=== PATIENT | female | born 1970 | race Caucasian/White ===

== ENCOUNTER 2018-09-08 09:10 | Day surgery (SDC) | payer BC, OTHER ==
[~2018-09-08 09:10] MED LIST: Buffered Lidocaine 0.9% SYRIN* 5 ML/SYR SYRINGE INTRADERM ONE; Famotidine IV* 10 MG/ML 2 ML (20 mg) IV ONE
[2018-09-08] MEDS ORDERED: Famotidine IV* 10 MG/ML 2 ML (20 mg) ONE (09:41)
[2018-09-08] MEDS ORDERED: ceFAZolin 2 GM PREMIX in ORs 2 GM/50 ML BAG IVPB ONE (09:41)
[2018-09-08] MEDS ORDERED: ceFAZolin 1 GM in Dextrose (*) 1 GM/50 ML BAG IVPB ONE (11:46)
[2018-09-08] MEDS ORDERED: Midazolam* 1 MG/ML 5 ML VIAL (5 MG) ONE (11:50)
[2018-09-08] MEDS ORDERED: fentaNYL* 50 MCG/ML 2 ML VIAL (100 MCG VIAL) ONE ×3 (11:50→15:32)
[2018-09-08] MEDS ORDERED: Acetaminophen TAB* 325 MG PO PRN (13:30)
[2018-09-08] MEDS ORDERED: DiMENhydriNATE IV* 50 MG/ML VIAL IV PUSH PRN (13:30)
[2018-09-08] MEDS ORDERED: Naloxone* 0.4 MG/ML 1 ML VIAL IV PRN (13:30)
[2018-09-08] MEDS ORDERED: Lidocaine 2% PF * 5 ML VIAL ONE (14:56)
[2018-09-08] MEDS ORDERED: DiMENhydriNATE IV* 50 MG/ML VIAL ONE (14:56)
[2018-09-08] MEDS ORDERED: Ondansetron INJ* 2 MG/ML VIAL ONE (14:56)
[2018-09-08] MEDS ORDERED: Dexamethasone IV* 4 MG/ML 1 ML (4 MG) ONE (14:56)
[2018-09-08] MEDS ORDERED: Propofol* 10 MG/ML 20 ML BTL ONE ×2 (14:56→15:34)
[2018-09-08] MEDS ORDERED: Bupivacaine 0.25% SDV PF* 10 ML VIAL INJ ONE ×2 (15:06→16:01)
[2018-09-08] MEDS ORDERED: HYDROmorphone INJ1* 1 MG/ML SYRINGE ONE (16:36)
[2018-09-08] MEDS: HYDROmorphone INJ1* 1 MG/ML SYRINGE IV PRN ×3 (16:38→16:59)
[2018-09-08] MEDS ORDERED: traMADol TAB* 50 MG ONE (16:45)
[2018-09-08 17:19] VITALS: BP 150/86
--- NOTE | 2018-09-09 13:54 | OP ---
DATE OF OPERATION: 09/08/18 - [facility] DATE OF : 72 SURGEON: Andrew Aguilar MD LABORATORY IMMUNOLOGIST: KAIDEN Matias. An membership assistant was needed for the entirety of the procedure to aid in positioning of the arm and retraction. ANESTHESIOLOGIST: Dr. Bocanegra. ANESTHESIA: General. PRE-OP DIAGNOSES: 1. Right thumb carpometacarpal degenerative joint disease. 2. Attenuation and insufficiency of the right thumb MCP joint volar plate allowing for significant MCP joint hyperextension of about 60 degrees. POST-OP DIAGNOSES: 1. Right thumb carpometacarpal degenerative joint disease. 2. Attenuation and insufficiency of the right thumb MCP joint volar plate allowing for significant MCP joint hyperextension of about 60 degrees. OPERATIVE PROCEDURE: 1. Right thumb carpometacarpal arthroplasty with trapeziectomy. 2. Distally based split flexor carpi radialis tendon transfer for thumb suspension and tendon interposition. 3. Right thumb MCP joint volar capsulodesis with volar plate advancement. INDICATIONS: Ary has had severe disabling pain. We have talked about risks and benefits. She had wanted to proceed with surgery. Additionally, I told her that with the CMC arthroplasty, I needed to tighten up the MCP joint to give her maximal strength in the thumb. She understood this and wanted to proceed with surgery. ESTIMATED BLOOD LOSS: 2 mL. COMPLICATIONS: None. FINDINGS: See above and below. DESCRIPTION OF PROCEDURE: Ary was seen in the preoperative holding area. The correct site, side, and procedure were identified. We came back to the operating room where the arm was prepped and draped in usual fashion. A time- out was performed. The arm was exsanguinated with the Esmarch and the tourniquet was inflated to 250 mmHg. I made a longitudinal incision over the dorsal radial aspect of the thumb base. Dissection was carried down longitudinally to preserve the traversing sensory nerves. The radial artery was identified and mobilized out of the way and retracted with a Ragnell retractor. I then made a longitudinal capsulotomy and raised a periosteal and capsular flaps off of the trapezium to expose the entirety of the trapezium dorsally and I then removed the trapezium in piecemeal fashion with a rongeur taking great care to preserve the distal pole of the scaphoid and cartilage and the trapezoid and what was left on the metacarpal base. There was a quite bit of full thickness cartilage loss on the metacarpal base and distal aspect of the trapezium. Once I had removed the entirety of the trapezium, I went ahead and examined the scaphoid trapezoid joint by placing a [place] elevator into the joint and plane longitudinal retraction on the second ray. The cartilage there was very nice and so no further treatment was needed there. I then created a bone tunnel from the dorsal radial metacarpal and proximal metacarpal of the volar ulnar aspect of the metacarpal base articular surface. This was drilled up to a 3.2 mm drill hole using sequentially larger drill bits. The wound was then irrigated out. We turned our attention to the tendon transfer. I made a 1 cm transverse incision over the distal FCR tendon just proximal to the wrist flexion crease, the sheath was opened. The tendon was brought up out of the wound and split longitudinally with a #15 blade. A 26 gauge wire was placed into the split. I then made 2 more 1 cm transverse incisions, each about 5 to 8 cm proximal to the left. The entirety of the sheath was released along the course of the tendon under the skin. A Brandy clamp was then placed under the skin and the wire was then pulled in the 2 most proximal sequentially into the more proximal wounds, releasing the half of the tendon proximally at the musculotendinous junction. I then secured the end of the tendon tail with a 3-0 Ethibond suture to prevent tendon frame. The split into the tendon was then shuttled down into base of thumb wound using 226 gauge wires. The tendon split was then completed all the way to the base of the second metacarpal. The free end of the tendon was passed through bone tunnel and then back around the intact limb and then appropriate tension was set while 3-0 Ethibond figure-of- eight sutures were used to secure all 3 limbs of the tendon transfer and then the last 2 sutures were used to sew intact limb to intact limb. Once the tendon transverse was completed, the thumb was in very nice position. The remainder of the tendon tail was rolled up into a bone, secured with 3-0 Ethibond suture and placed with interposition at the site of the trapeziectomy. The capsule was then closed with 3-0 Ethibond suture. All the wounds were then closed with 4-0 nylon suture. We then turned our attention to the volar MCP joint capsulodesis. I made a V- shaped incision and raised a radially based flap and ulnarly based flap off the anterior MCP joint, taking care to preserve both digital nerves. I then incised the A1 jamar along its entire length and then I retracted the flexor tendon radially. This provided me an excellent view of the volar plate, which I raised as a distally based U-flap, using a [place] blade. Once the flap was fully mobilized, I could pull on the flap of the volar plate and flex the MCP joint. I then placed 2 mini Mitek suture anchors in the distal aspect of the metacarpal just proximal to the metacarpal head. I then sewed up into the volar plate with both of the Ethibond sutures, coming up to mini Mitek sutures. This was done in a whipstitch type fashion and then I pulled the tissue down the bone and tied it off in standard fashion, tying up first the radial stitch and then the ulnar stitch. This put my MCP joint in about 20 degrees of flexion and I could passively take it out to about 10 degrees of flexion. I was very pleased with this. I therefore let the tendon back into place, irrigated out the wound. The skin was closed with 4-0 nylon suture. All the operative areas were infiltrated with 0.25% plain Marcaine. A well padded thumb spica splint was applied out to the tip of the thumb, holding the MCP joint in gentle flexion. Tourniquet was deflated and she was taken to the recovery room in stable condition. [id number]/[facility] #: [id number] TOBIAS
== END 2018-09-08 17:43 | disposition home or self-care (01) ==
LOC: OR 09:10
PROVIDERS: ATTEND Orthopaedic Surgery Hand Surgery
DX: M18.11 Unilateral primary osteoarthritis of first carpometacarpal joint, right hand (principal); M25.341 Other instability, right hand; Z87.891 Personal history of nicotine dependence; I10 Essential (primary) hypertension; J45.990 Exercise induced bronchospasm
CPT/HCPCS: 81025; 88304; 88311; A9270-GY; C1713; J0690; J1100; J1170; J1240; J2250; J2405; J2704; J3010; J3490

== ENCOUNTER 2018-10-29 13:49 | Emergency (ER) | payer OTHER ==
--- OUTSIDE RECORDS SUMMARY | 2018-10-29 14:12 | XMS REPORT | Continuity of Care Document ---
:1970 External Reference #:[id number] Author Name Rian Eduardo MD Address [address] [place] [address] Care Team Providers Name Role Phone Andrew Aguilar MD Care Team Information [employer] Unavailable Pedro Izaguirre NP Primary Care Physician Unavailable Payers Type Date Identification Numbers Payment Provider Subscriber Policy Number: [id number] [facility] Ary Miramontes PayID: [id number] [address] [address] [place] [address] Onset: 2018 Policy Number: [id number] [employer] Name: Ext [id number] [address] [address] PayID: [id number] [place] [address] Advance Directives Description No Information Available Problems Date Description Provider Status Onset: 03/22/2016 Benign essential hypertension Ravindra Larsen MD Active Onset: 03/22/2016 Irritable bowel syndrome Ravindra Larsen MD Active Note: colo to TI, suboptimal prep (but had only 1/2 day of liquid diet), Bx 2015 Onset: 03/22/2016 Asthma Ravindra Larsen MD Active Onset: 03/22/2016 Thin basement membrane disease Ravindra Larsen MD Active Onset: 03/22/2016 Obesity Ravindra Larsen MD Active Onset: 03/22/2016 Gastroesophageal reflux disease Ravindra Larsen MD Active Note: upper push-enteroscopy 20 cm beyond Treitz Bx 2015 Onset: 05/26/2018 Skin sensation disturbance January Mandujano MD Active Onset: 05/26/2018 Pain in limb January Mandujano MD Active Family History Date Family Member(s) Problem(s) Comments Father Diabetes Father IBS Father Gastritis Mother Diabetes Mother Rheumatoid Arthritis Mother Hypertension Social History Type Date Description Comments Sex Unknown Marital Status Home Environment 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 Tobacco Use Start: Unknown Never Smoked Cigarettes Smokeless Tobacco Never Used Smokeless Tobacco ETOH Use Occasionally consumes alcohol Recreational Drug Use Denies Drug Use Tobacco Use Start: Unknown End: Patient is a former smoker Allergies, Adverse Reactions, Alerts Date Description Reaction Status Severity Comments 07/13/2013 Ibuprofen Active 07/13/2013 Hydrocodone Active 03/22/2016 Oxycodone Active 03/22/2016 Pseudoephedrine Active 03/22/2016 Cefprozil Active 03/22/2016 Trazodone Active 03/22/2016 Oxymetazoline Active 12/26/2017 Ketorolac Tromethamine Active Pt states cuts off airway Medications Medication Date Status Form Strength Qnty SIG Indications Ordering Provider Lactose Fast Acting 03/19 Active Chewtabs 9000Unit 90uni 1 tablet K58.0 Jayce ts with each , suri Modi MD 10/04 Active Tablets 100mg 60tab Take One K58.0 Jayce s Tablet By Rian Mouth MD Twice A Day Max/Day=2 Hydrochlorothiazide Active Capsules 12.5mg 1 po daily Unknown Dicyclomine HCL Active Tablets 20mg 360ta take one Vatra, bs tablet by sandra Waite MD every 6 hours as needed for abdominal pain Excedrin Migraine Active Tablets 250-250-6 2 tab by Unknown 5mg mouth every day as needed max 2 tabs/24hrs prn Levocetirizine Active Tablets 5mg 1 by mouth Unknown Dihydrochloride every day Proair HFA Active Aerosol 108(90Bas Fensterma e) [place] diaza mcg/Act n S, RPA-Ileana Pulmicort Flexhaler Active Aerosol 180mcg/Ac 2 p daily Fensterma t joe,Suza n S, RPA-C Pazeo Eye Drops Active Solution 0.7% A/D as Fensterma needed for joe,[place] allergies n S, RPA-C Tramadol HCL Active Tablets 50mg 1 po q 4-6 Unknown /0000 h prn Peg-3350/Electrolyt 03/19 Hx Solution 236gm 4000m drink half K58.0 Jayce Rec l bottle 4pm , Rian, half MD bottle 4am Citrate Of Magnesia 03/19 Hx Solution 1.745GM/3 296ml 1 bottle K58.0 0ML at 1pm Rian martínez, before MD procedure Dulcolax 03/19 Hx Tablets 5mg 4tabs 4 tablets K58.0 Rian Hyatt, 8pm the MD day before the procedure Viberzi 08/21 Hx Tablets 100mg 30tab 1 tab by s mouth , Rian, twice a MD day Suprep Bowel Prep 03/22 Hx Solution 354ml drink 16 Vat oz x1 Ravindra, - dose, then MD 04/30 drink oz water over 1h evening before procedure; repeat regimen at least 1h before procedure Dicyclomine HCL Hx Capsules 10mg as prn Unknown - 03/22 Cipro Hx Tablets 500mg 1 by mouth Unknown twice a day, ending 05/10/16 Azithromycin Hx Tablets 250mg Robledo, Dorina, - FUEL MANAGER 10/02 Immunizations Description No Information Available Vital Signs Date Vital Result Comment 10/02/2018 10:52am BP Systolic Sitting Left Arm 130 mmHg BP Diastolic Sitting Left Arm 90 mmHg Heart Rate 88 /min Respiratory Rate 16 /min Height 66 inches 5'6" Weight 266.00 lb BMI (Body Mass Index) 42.9 kg/m2 BSA (Body Surface Area) 2.26 m2 Carroll body weight in kilograms 59 kg O2 % BldC Oximetry 97 % 12/26/2017 2:30pm BP Systolic Sitting Right Arm 134 mmHg BP Diastolic Sitting Right Arm 82 mmHg Heart Rate 98 /min Respiratory Rate 18 /min Height 66 inches 5'6" Weight 266.00 lb BMI (Body Mass Index) 42.9 kg/m2 BSA (Body Surface Area) 2.26 m2 Carroll body weight in kilograms 59 kg 09/12/2017 12:56pm BP Systolic Sitting Left Arm 148 mmHg BP Diastolic Sitting Left Arm 96 mmHg Heart Rate 90 /min Respiratory Rate 16 /min Height 66 inches 5'6" Weight 266.00 lb BMI (Body Mass Index) 42.9 kg/m2 BSA (Body Surface Area) 2.26 m2 Carroll body weight in kilograms 59 kg 03/19/2017 1:07pm BP Systolic Sitting Left Arm 130 mmHg BP Diastolic Sitting Left Arm 96 mmHg Heart Rate 84 /min Respiratory Rate 16 /min Height 66 inches 5'6" Weight 255.00 lb BMI (Body Mass Index) 41.2 kg/m2 BSA (Body Surface Area) 2.22 m2 Carroll body weight in kilograms 59 kg 10/04/2016 9:39am BP Systolic Sitting Left Arm 132 mmHg BP Diastolic Sitting Left Arm 82 mmHg Respiratory Rate 16 /min Height 66 inches 5'6" Weight 257.00 lb BMI (Body Mass Index) 41.5 kg/m2 BSA (Body Surface Area) 2.22 m2 08/21/2016 10:33am BP Systolic Sitting Left Arm 144 mmHg BP Diastolic Sitting Left Arm 88 mmHg Heart Rate 80 /min Respiratory Rate 16 /min Height 66 inches 5'6" Weight 259.00 lb BMI (Body Mass Index) 41.8 kg/m2 BSA (Body Surface Area) 2.23 m2 05/01/2016 2:42pm BP Systolic 122 mmHg BP Diastolic 74 mmHg Heart Rate 93 /min Respiratory Rate 18 /min Height 66 inches 5'6" Weight 255.00 lb BMI (Body Mass Index) 41.2 kg/m2 BSA (Body Surface Area) 2.22 m2 O2 % BldC Oximetry 97 % ra 03/22/2016 9:16am BP Systolic 119 mmHg BP Diastolic 88 mmHg Heart Rate 80 /min Height 66 inches 5'6" Weight 250.00 lb BMI (Body Mass Index) 40.3 kg/m2 BSA (Body Surface Area) 2.20 m2 [place] body weight in kilograms 59 kg Results Test Date Facility Test Result H/L Range Note Laboratory test 08/26/2017 [facility] Urine HCG NEGATIVE Negative 1, [address] (Qualitative) [place] [address] [phone] Laboratory test 04/18/2016 [facility] Esophageal See Note [address] Biopsy [place], [place] [id number] [phone] Laboratory test 04/18/2016 [facility] Urine HCG NEGATIVE Negative [address] (Qualitative) [place] [address] [phone] CBC 07/11/2013 [facility] White Blood 8.6 K/uL 3.1-10.[address] Count [place], [place] [id number] [phone] Red Blood Count 4.09 M/uL 3.90-5.40 Hemoglobin 12.6 gm/dL 11.6-15.8 Hematocrit 37.2 % 36.0-46.1 Mean Cell Volume 91.0 fl 80.9-99.0 Mean Corpuscular HGB 30.8 pg 25.9-32.7 Mean Corpuscular HGB Conc 33.9 g/dL 30.8-34.3 Platelet Count 258 K/uL 155-360 Red Cell Distri Width %CV 12.2 % 11.7-14.4 Mean Platelet Volume 10.3 fL 8.9-12.4 1 COLONSCOPY 2 FIRST MORNING SPECIMENS GENERALLY CONTAIN THE HIGHEST CONCENTRATION OF HCG AND ARE RECOMMENDED FOR EARLY DETECTION OF . Method: Quidel QuickVue One-Step Immunoassay 3 OPERATION/PROCEDURE Colonoscopy with polypectomy, upper push enteroscopy. DIAGNOSIS: PART 1: "COLON, RANDOM, BIOPSY": - BENIGN COLONIC MUCOSA WITH NO SIGNIFICANT PATHOLOGIC ABNORMALITIES. - NO EVIDENCE OF MICROSCOPIC COLITIS. PART 2: "JEJUNUM, RANDOM, BIOPSY": - BENIGN SMALL INTESTINAL MUCOSA WITH NO SIGNIFICANT PATHOLOGIC ABNORMALITIES. - NO EVIDENCE OF VILLOUS BLUNTING OR INCREASED INTRAEPITHELIAL LYMPHOCYTES. PART 3: "ESOPHAGUS, BIOPSY": - FRAGMENTS OF BENIGN COLONIC MUCOSA WITH NO SIGNIFICANT PATHOLOGIC ABNORMALITIES. - COLUMNAR-TYPE ESOPHAGEAL MUCOSA WITH MILD CHRONIC INFLAMMATION. - NEGATIVE FOR INTESTINAL METAPLASIA OR DYSPLASIA. EP/clf 1040 GROSS Received in formalin in three properly labeled container with the patient's name and accession number. Part one is designated, "RANDOM COLON BIOPSY". The specimen consists of multiple pieces of naidu, soft rubbery tissue measuring 0.4 x 0.4 x 0.2 cm. in aggregate. Submitted entirely in one cassette. Part two is designated, "RANDOM JEJUNAL BIOPSY". The specimen consists of multiple pieces of naidu, soft rubbery tissue measuring 0.7 x 0.4 x 0.3 cm. in aggregate. Submitted entirely, one cassette. Part three is designated, "ESOPHAGEAL BIOPSY". The specimen consists of multiple pieces of naidu, soft rubbery tissue measuring 0.5 x 0.3 x 0.2 cm. in aggregate. Submitted entirely, one cassette. PRE OPERATIVE DIAGNOSIS Abdominal pain. REVIEW CODE CODE: I Signed Electronically signed Dionne SALEH MD [id number] FIRST MORNING SPECIMENS GENERALLY CONTAIN THE HIGHEST CONCENTRATION OF HCG AND ARE RECOMMENDED FOR EARLY DETECTION OF . Procedures Date Code Description Status 05/26/2018 09323 Nerve Conduction, Sensory Completed 05/26/2018 79816 Nerve Conduction, Motor W/F-Wave Study Completed 05/26/2018 75132 Needle Electromyography Complete, Five Or More Muscles Completed Studied 08/26/2017 48110 Colonoscopy With Biopsy Completed 08/26/2017 [id number] Colonoscopy Completed 04/18/2016 64901 Colonoscopy Completed 04/18/2016 16919 Endoscopy Small Intestine W/Biopsy Completed 04/18/2016 [id number] Colonoscopy Completed 10/07/2009 [id number] Colonoscopy Completed 04/01/2002 [id number] Colonoscopy Completed Encounters Type Date Location Provider Dx Diagnosis Office Visit 10/02/2018 Rian Duncan MD K58.0 Irritable bowel 11:00a syndrome with diarrhea Office Visit 12/26/2017 Rian Duncan MD K58.0 Irritable bowel 2:30p syndrome with diarrhea Office Visit 09/12/2017 Rian Duncan MD K58.0 Irritable bowel 1:00p syndrome with diarrhea K52.831 Collagenous colitis Office Visit 03/19/2017 1:00p GI Rian Eduardo MD K58.0 Irritable bowel syndrome with diarrhea Office Visit 10/04/2016 9:30a GI Rian Eduardo MD K58.0 Irritable bowel syndrome with diarrhea Office Visit 08/21/2016 10:30a GI Rian Eduardo MD K58.0 Irritable bowel syndrome with diarrhea Office Visit 05/01/2016 3:00p GI Ravindra Larsen MD R11.0 Nausea K58.0 Irritable bowel syndrome with diarrhea K21.9 Gastro-esophageal reflux disease without esophagitis Office Visit 03/22/2016 9:15a Ravindra Abebe MD K58.9 Irritable bowel syndrome without diarrhea K21.9 Gastro-esophageal reflux disease without esophagitis Office Visit 03/16/2015 2:51p James Gómez, 789.00 Pain Abdominal Regional M.D. [facility] 787.03 Vomiting Alone 787.91 Diarrhea Office Visit 07/11/2013 11:17a Surgical Office [facility] 789.03 Pain Abdominal Christopher H., Right Lower M.D. [facility]rant Office Visit 07/10/2013 10:08a Harriet James Armando, 789.03 Pain Abdominal Regional M.D. [facility] Plan of Treatment Future Appointment(s):03/10/2019 8:30 am - Rian Eduardo MD at GI10/02/2018 - Rian Eduardo MDK58.0 Irritable bowel syndrome with diarrheaComments: symptoms well under control with viberzicontinue using lactase enzymeFollow up: 6 months
--- OUTSIDE RECORDS SUMMARY | 2018-10-29 14:12 | XMS REPORT | Continuity of Care Document ---
:1970 External Reference #:[id number] Author Name Deanne Aguilar Care Team Providers Name Role Phone Dorina Weber FNP Primary Care Physician Unavailable Payers Type Date Identification Numbers Payment Provider Subscriber Policy Number: [id number] [facility] Camilo Santoro PayID: [id number] [address] [address] [place] [address] Onset: 2018 Policy Number: [id number] [facility] Camilo Santoro Group Number: [id number] [address] [address] Group Name: [phone] [place] [address] PayID: [id number] Advance Directives Description No Information Available Problems Date Description Provider Status Onset: 2018 Finger joint unstable Andrew Aguilar MD Active Onset: 06/25/2018 Radial styloid tenosynovitis Andrew Aguilar MD Active Onset: 05/30/2018 Localized, primary osteoarthritis of the Andrew Aguilar MD Active hand Onset: 05/30/2018 Carpal tunnel syndrome of right wrist Andrew Aguilar MD Active Family History Date Family Member(s) Problem(s) Comments Father Seasonal Allergies Father Hypertension Father irritable bowel syndrome Father Diabetes Father Heart Disease Mother Rheumatoid Arthritis Mother Osteoarthritis Mother Hypertension Mother Diabetes Mother Seasonal Allergies Mother maternal grandmother-DM,HTN Siblings brother-HTN,Allergies Social History Type Date Description Comments Sex Unknown Marital Status Lives 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 ETOH Use Occasionally consumes alcohol Tobacco Use Start: Unknown Patient is a former End: Unknown smoker Recreational Drug Use Denies Drug Use Smoking Status Reviewed: 10/17/18 Patient is a former smoker Exercise Type/Frequency Exercises regularly walking twice daily Allergies, Adverse Reactions, Alerts Date Description Reaction Status Severity Comments 02/18/2018 Ketorolac Tromethamine Active Closes off airway 02/18/2018 Ibuprofen Active Bad rash 02/14/2018 Percocet Active 02/14/2018 Vicodin Active 02/14/2018 Endocet Active 02/14/2018 Cefdinir Active 02/14/2018 Altacaine Active 02/14/2018 Afrin Active Medications Medication Date Status Form Strength Qnty SIG Indications Ordering Provider Tramadol HCL 09/08 Active Tablets 50mg 30tab 1-2 s tablets Aguilar, by mouth MD every 6 hours as needed pain Voltaren 06/27 Active Gel 1% 500gm apply 2 grams to Aguilar, affected MD areas four times a day as needed Dicyclomine HCL Active Tablets 20mg take 1 Unknown /0000 tablet by mouth 2 to 4 times a day as needed Hydrochlorothiazid Active Capsules 12.5mg 1 by Unknown e /0000 mouth every day Ondansetron Active Tablets 4mg dissolve Unknown /0000 Dispers one tablet orally every 8 hours as needed for nausea. Rhinocort Allergy Active Suspension 32mcg/Act 2 sprays Unknown /0000 each nostril daily Viberzi Active Tablets 100mg 1 by Unknown /0000 mouth twice a day Acetaminophen Active Tablets 500mg 2 tabs by Unknown Extra Strength /0000 mouth every 8 hours as needed for pain or fever Medications Administered in Office Medication Date Status Form Strength Qnty SIG Indications Ordering Provider Celestone 3 mg Administered Injection Laureano M and 3mg 018 MD Mason Celestone 3 mg Administered Injection Laureano M and 3mg 018 MD Mason Immunizations Description No Information Available Vital Signs Date Vital Result Comment 10/17/2018 8:26am Height 66.50 inches 5'6.50" Weight 270.00 lb Heart Rate 88 /min BP Systolic Sitting 142 mmHg BP Diastolic Sitting 90 mmHg Pain Level 0 BMI (Body Mass Index) 42.9 kg/m2 09/19/2018 9:22am Height 66.50 inches 5'6.50" Weight 270.00 lb BP Systolic 130 mmHg BP Diastolic 88 mmHg Body Temperature 99.9 F BMI (Body Mass Index) 42.9 kg/m2 2018 8:48am Height 66.50 inches 5'6.50" Weight 270.00 lb BP Systolic Sitting 122 mmHg BP Diastolic Sitting 78 mmHg Respiratory Rate 16 /min Body Temperature 100.1 F Pain Level 9 BMI (Body Mass Index) 42.9 kg/m2 06/25/2018 10:39am Height 66.50 inches 5'6.50" Heart Rate 64 /min BP Systolic 136 mmHg BP Diastolic 90 mmHg Body Temperature 98.8 F Pain Level 7 05/30/2018 8:43am Height 66.50 inches 5'6.50" Weight 270.00 lb BP Systolic Sitting 124 mmHg BP Diastolic Sitting 66 mmHg Respiratory Rate 17 /min Pain Level 3 can spike up some days BMI (Body Mass Index) 42.9 kg/m2 02/24/2018 8:54am Height 66.50 inches 5'6.50" Weight 270.00 lb Heart Rate 80 /min BP Systolic 114 mmHg BP Diastolic 86 mmHg Respiratory Rate 16 /min Pain Level 2 BMI (Body Mass Index) 42.9 kg/m2 Results Test Date Facility Test Result H/L Range Note Laboratory test 09/08/2018 [facility] SEE RESULT [address] Pathology BELOW [place] [id number] [phone] 1 SEE RESULT BELOW Name: CAMILO SANTORO : [address]: Andrew Aguilar MD Acct: [id number] Unit: [id number] AGE: 48 Location: OR Re09/08/18 SEX: F Status: SUSSY ROSASC SPEC: [id number] MAR: 09/08/18- SUBM DR: Andrew Aguilar MD REQ: [id number] RECD: 09/08/18 STATUS: SOUT _ ORDERED: Decal, LEVEL 3 FINAL DIAGNOSIS Right thumb trapezium, excision: -- Benign bone and cartilage with degenerative change. PRE-OPERATIVE DIAGNOSIS Right thumb pain GROSS DESCRIPTION The specimen is received in formalin labeled, Right Thumb Trapezium Bone, and consists of a 3.5 x 3.0 by up to 1.1 cm aggregate of naidu-white irregular focally shaggy bone fragments. Travel Pt sections, one cassette following decalcification. Signed by and Reported on: Kassandra Piña MD 09/12/18 1528 END OF REPORT DEPARTMENT OF PATHOLOGY, [address] [place] [address] Margarito Friend M.D. Director [facility] # [id number] Procedures Date Code Description Status 09/19/2018 85580 Short Arm Splint Application Completed 09/08/2018 92265 Capsulodesis Metacarpophalangeal Joint, Single Digit Completed 09/08/2018 88247 Capsulodesis Metacarpophalangeal Joint, Single Digit Completed 09/08/2018 50823 Capsulodesis Metacarpophalangeal Joint, Single Digit Completed 09/08/2018 45107 Tendon Transfer CMC/Hand W/O Free Graft Completed 09/08/2018 62801 Tendon Transfer CMC/Hand W/O Free Graft Completed 09/08/2018 37464 Tendon Transfer CMC/Hand W/O Free Graft Completed 09/08/2018 97084 Arthroplasty Interposition Intercarpal Or Carpometacarpal Completed JTS 09/08/2018 43944 Arthroplasty Interposition Intercarpal Or Carpometacarpal Completed JTS 09/08/2018 70086 Arthroplasty Interposition Intercarpal Or Carpometacarpal Completed JTS 09/08/2018 32119 Capsulodesis Metacarpophalangeal Joint, Single Digit Completed 09/08/2018 14234 Tendon Transfer CMC/Hand W/O Free Graft Completed 09/08/2018 12707 Arthroplasty Interposition Intercarpal Or Carpometacarpal Completed JTS 02/24/2018 81530 Rad Exam; Hand Comp Completed 02/24/2018 61169 Inject Tendon Sheath Or Ligament Aponeurosis Eg Plantar Completed Fascia Encounters Type Date Location Provider Dx Diagnosis Office Visit 06/25/2018 Orthopedic Andrew Aguilar, M65.4 Radial styloid 9:45a [facility] tenosynovitis [de Quervain] G56.01 Carpal tunnel syndrome, right upper limb M18.11 Unil primary osteoarth of first carpometacarp joint, r hand Office Visit 05/30/2018 8:30a Orthopedic Andrew G56.01 Carpal tunnel [facility] Aguilar MD syndrome, right AT [place] upper limb M18.11 Unil primary osteoarth of first carpometacarp joint, r hand Plan of Treatment Future Appointment(s):11/14/2018 3:15 pm - Andrew Aguilar MD at [facility]
--- NOTE | 2018-10-29 16:04 | ED ---
Upper Extremity Pain - HPI Summary HPI Summary: 48-year-old female presents with right thumb injury today. States she fell on her outstretched hand. She just had tendon repair on her right thumb a month ago. She states she was just starting PT. She states she now has limited range of motion due to pain. She admits occasional tingling of the finger. 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 She is right-handed. She states the pain radiates up to her right wrist. She denies any elbow pain. No other injury. fall was a mechanical fall. - History of Current Complaint Chief Complaint: EDExtremityUpper Stated Complaint: FELL ON RIGHT HAND Time Seen by Provider: 10/29/18 15:29 Hx Last Menstrual Period: 02/06/16 - Allergies/Home Medications Allergies/Adverse Reactions: Allergies Allergy/AdvReac Type Severity Reaction Status Date / Time hydrocodone Allergy Severe Rash Verified 10/29/18 14:02 ketorolac Allergy Severe Difficulty Verified 10/29/18 14:02 Breathing oxycodone Allergy Severe Rash Verified 10/29/18 14:02 tetracaine [From Altacaine] Allergy Severe Airway Verified 10/29/18 14:02 Obstruction cefdinir Allergy Intermediate Difficulty Verified 10/29/18 14:02 Breathing ibuprofen Allergy Intermediate Difficulty Verified 10/29/18 14:02 Breathing oxymetazoline Allergy Intermediate Rash Verified 10/29/18 14:02 [From Afrin (oxymetazoline)] PMH/Surg Hx/FS Hx/Imm Hx Endocrine/Hematology History: Denies: Hx Diabetes, Hx Systemic Lupus Erythematosus, Hx Thyroid Disease Cardiovascular History: Reports: Hx Hypertension - HCTZ Denies: Hx Congestive Heart Failure, Other Cardiovascular Problems/Disorders Respiratory History: Reports: Hx Asthma - Rescue med Denies: Hx Sleep Apnea, Other Respiratory Problems/Disorders GI History: Reports: Hx Irritable Bowel - on medications Denies: Hx Gastroesophageal Reflux Disease, Other GI Disorders History: Reports: Hx Kidney Infection - history of, not recent, Hx Kidney Stones - history of, not recent-passed on own, Other Problems/Disorders - UTI approx 6 months ago Denies: Hx Dialysis, Hx Renal Disease Musculoskeletal History: Reports: Hx Arthritis - Right thumb, Hx Tendonitis - Radial styloid tenosynovitis (de Quervain) Denies: Hx Rheumatoid Arthritis, Other Musculoskeletal History Sensory History: Denies: Hx Contacts or Glasses, Hx Hearing Aid Opthamlomology History: Denies: Hx Contacts or Glasses Neurological History: Reports: Hx Headaches, Hx Migraine - Excedrine Migraine 1- 2 tabs Denies: Other Neuro Impairments/Disorders - Cancer History Hx Chemotherapy: No - Surgical History Surgery Procedure, Year, and Place: CHOLECYSTECTOMY 1990. C SECTION X1 1994. COLONOSCOPIES Hx Anesthesia Reactions: Yes - when had gallbladder had violent nausea and vomiting Infectious Disease History: No Infectious Disease History: Denies: Traveled Outside the [place] in Last 30 Days - Family History Known Family History: Positive: Hypertension - Social History Alcohol Use: Occasionally Substance Use Type: Reports: None Smoking Status (MU): Former Smoker Review of Systems Negative: Fever Negative: Chest Pain Negative: Shortness Of Breath Positive: Myalgia - right thumb pain All Other Systems Reviewed And Are Negative: Yes Physical Exam Triage Information Reviewed: Yes Vital Signs On Initial Exam: Initial Vitals Temp Pulse Resp BP Pulse Ox 98.7 F 94 19 161/108 96 10/29/18 13:59 10/29/18 13:59 10/29/18 13:59 10/29/18 13:59 10/29/18 13:59 Vital Signs Reviewed: Yes Appearance: Positive: Well-Appearing Skin: Positive: Warm, Dry Head/Face: Positive: Normal Head/Face Inspection Eyes: Positive: Normal, Conjunctiva Clear ENT: Positive: Pharynx normal Respiratory/Lung Sounds: Positive: Clear to Auscultation, Breath Sounds Present Cardiovascular: Positive: Normal, RRR Musculoskeletal: Positive: Limited @ - right thumb, Edema Right - thumb, Other - tenderness snuff box, surgical scars present, capillary refill<2 secs, sensation grossly intact. no deformity noted Neurological: Positive: Normal Psychiatric: Positive: Normal Procedures - Splinting right hand Location: right hand Hand-Made Type: orthoglass Splint: thumb spica Pre-Proc Neuro Vasc Exam: normal Post-Proc Neuro Vasc Exam: normal Diagnostics - Vital Signs Vital Signs Temp Pulse Resp BP Pulse Ox 10/29/18 13:59 98.7 F 94 19 161/108 96 - Laboratory Lab Statement: Any lab studies that have been ordered have been reviewed, and results considered in the medical decision making process. - Radiology wrist, hand Radiology Interpretation Completed By: Radiologist Summary of Radiographic Findings: IMPRESSION: #. Negative for fracture or dislocation at the RIGHT hand wrist. Course/Dx - Course Course Of Treatment: 48-year-old female presents with right thumb injury today. She fell on her outstretched hand. Has tenderness over right thumb and wrist. had tendon repair a month ago. Now has limited range of motion. On exam neurovascular intact. Tenderness over snuffbox. Edema noted to the right thumb. X-ray shows no fracture. With tenderness of snuffbox and recent surgery placed in a thumb spica splint and told to follow-up with orthopedic. Patient understands agrees with plan. - Diagnoses Differential Diagnosis/HQI/PQRI: Positive: Fracture (Closed), Strain, Sprain Provider Diagnoses: Injury of right hand Discharge - Sign-Out/Discharge Documenting (check all that apply): Patient Departure - Discharge Plan Condition: Good Disposition: HOME Patient Education Materials: R.I.C.E. Treatment (ED) Forms: *Work Release Referrals: Dionne Sanchez [Primary Care Provider] - Andrew Aguilar MD [Medical Doctor] - Additional Instructions: Keep splint on area and keep dry Call ortho office to follow up with Dr Aguilar Use tyenblol for pain every 6 hours Ice, elevate Return to ED if develop any new or worsening symptoms - Billing Disposition and Condition Condition: GOOD Disposition: Home
[2018-10-29 16:12] VITALS: BP 155/98
== END 2018-10-29 16:11 | disposition home or self-care (01) ==
LOC: ED 13:49
DX: S69.91XA Unspecified injury of right wrist, hand and finger(s), initial encounter (principal); Z87.891 Personal history of nicotine dependence; W19.XXXA Unspecified fall, initial encounter; Y92.9 Unspecified place or not applicable; I10 Essential (primary) hypertension; J45.909 Unspecified asthma, uncomplicated
CPT/HCPCS: 99282

== ENCOUNTER → 2019-07-13 08:58 | Day surgery (SDC) | payer BC, OTHER ==
[~2019-07-13 08:58] MED LIST changes: +Atracurium* 10 MG/ML 10 ML VIAL ONE; -Buffered Lidocaine 0.9% SYRIN* 5 ML/SYR SYRINGE INTRADERM ONE; +Buffered Lidocaine 1% SYRIN* 1 ML/SYRINGE INTRADERM ONE; +Bupivacaine 0.25% SDV PF* 10 ML VIAL INJ ONE; +Clindamycin 900 MG/D5W BAG(*) 900 MG/50 ML BAG IVPB ONE; +Dexamethasone IV* 4 MG/ML 1 ML (4 MG) IV SLOW PU ONE; +Dexamethasone IV* 4 MG/ML 1 ML (4 MG) ONE; +DiMENhydriNATE IV* 50 MG/ML VIAL IV PUSH PRN; +Famotidine IV* 10 MG/ML 2 ML (20 mg) ONE; +Lactated Ringers 1000 ML Bag* 1,000 ML IV SCH; +Levalbuterol 0.63MG/3ML NEB* UNIT OF USE INH ONE; +Lidocaine 2% PF * 5 ML VIAL ONE; +Midazolam* 1 MG/ML 5 ML VIAL (5 MG) ONE; +Naloxone* 0.4 MG/ML 1 ML VIAL IV PRN; +Ondansetron INJ* 2 MG/ML VIAL IV PRN; +Ondansetron INJ* 2 MG/ML VIAL ONE; +Propofol* 10 MG/ML 20 ML BTL ONE; +Rocuronium* 10 MG/ML VIAL ONE; +Sugammadex * 200 MG/2 ML VIAL IV PUSH ONE; +fentaNYL* 50 MCG/ML 2 ML VIAL (100 MCG VIAL) ONE; +fentaNYL* 50 MCG/ML 5 ML VIAL (250 MCG VIAL) ONE
[2019-07-13] MEDS: fentaNYL* 50 MCG/ML 2 ML VIAL (100 MCG VIAL) IV PRN ×2 (13:35→14:40)
[2019-07-13 15:24] VITALS: BP 131/71
--- NOTE | 2019-07-15 13:59 | OP ---
DATE OF OPERATION: 07/13/19 - [facility] DATE OF : 72 SURGEON: Andrew Aguilar MD RESIDENTIAL PROGRAM DIRECTOR: KAIDEN Matias. An certified pharmacist assistant was needed for the procedure to aid in positioning of the arm and retraction. ANESTHESIOLOGIST: Dr. Fan. ANESTHESIA: General. PRE-OP DIAGNOSES: 1. Left thumb carpometacarpal degenerative joint disease. 2. Left de Quervain tendinitis. POST-OP DIAGNOSES: 1. Left thumb carpometacarpal degenerative joint disease. 2. Left de Quervain tendinitis. OPERATIVE PROCEDURE: 1. Left thumb carpometacarpal arthroplasty with trapeziectomy. 2. Distally based split flexor carpi radialis tendon transfer for thumb suspension and tendon interposition. 3. Left wrist de Quervain's release. INDICATIONS: Jimbo has severe symptoms. She has done well with the CMC arthroplasty on the right. She also had some de Quervain's in the left. We had talked about the treatment options and plan for the surgery as previously mentioned. She understands there is a chance of radial sensory nerve irritation , persistent pain and discomfort and need for more surgery. She wished to proceed. ESTIMATED BLOOD LOSS: 2 mL. COMPLICATIONS: None. FINDINGS: See above and below. DESCRIPTION OF PROCEDURE: Ary was seen in the preoperative holding area. The correct site and side of the procedure were identified. We came back to the operating room. The arm was prepped and draped in the usual fashion. The time-out was performed. The arm was exsanguinated with the Esmarch and the tourniquet inflated to 250 mmHg. I first made a 1 to 2 cm transverse incision just proximal to the radial styloid. Dissection was carried down. Full thickness flaps were raised off the tendon sheath bluntly to preserve the sensory nerve. Ragnell retractors were placed. The first dorsal compartment tendon sheath was released along its dorsal margin. There was an accessory compartment. The septum was excised and everything was fully released proximally and distally. There was some tenosynovitis that was excised. At this point, things were looking good, so the wound was irrigated out and the skin was closed with the 4-0 Monocryl suture and a Steri-Strip. I then made a 2 to 3 cm longitudinal incision over the dorsal radial thumb base. Dissection was carried down longitudinally to preserve the sensory nerves. The radial artery was mobilized and protected. I made a subperiosteal incision and raised subperiosteal and capsular flaps to expose the CMC joint. Once I had released the soft tissue above the trapezium that was excised in piecemeal fashion with a rongeur taking care to preserve the surrounding articular cartilage. The FCR tendon was left in to base of the wound. Once I had completely excised the trapezium and everything was looking good there, we then made a bone tunnel starting on the dorsal radial thumb base, exiting out the volar ulnar articular surface. This was done with sequentially larger drill bit so as to not fracture the bone. At this point, everything was irrigated out and we turned our attention to the tendon transfer. I then made a 1 cm incision just over the FCR tendon distal, but proximal to the wrist flexion crease. The tendon sheath was released. The tendon was brought up and split longitudinally and a 26-gauge wire was released. It was passed into the tendon split. I released this tendon sheath proximally. I made 2 more 1 cm incisions over the tendon, each at intervals. The sheath was released along the entirety of the sheath. A Brandy clamp was then used to retrieve the wire and pull it proximally releasing half the tendon and the muscular tendinous junction. Muscular remnants were removed and the end of the tendon tail was secured with 3-0 Ethibond suture to prevent tendon fraying. Two 26-gauge wires were then used to suture shuttle the tendon tail down into the thumb base wound. The tendon split was taken all the way to the thumb, the second metacarpal base. The free end of the tendon was passed through the bone tunnel back around the intact limb and then maximum tension was set as the tendon transfer was secured with multiple 3-0 Ethibond [id number] sutures, the first sewing all 3 limbs of the tendon transfer together, the second sewing intact limb to intact limb. The remainder of the tendon was brought up to the bone and docked as an interposition between the base of the metacarpal and distal pole of the scaphoid. At this point, everything was looking good. The scaphotrapezoid joint had looked good so nothing was needed there. The capsule was closed with 4-0 Vicryl sutures. Skin was closed with 4-0 nylon suture. 0.25% plain Marcaine was infiltrated all above the operative areas. Wounds were dressed with Xeroform, 4x4s, sterile Webril, and then a thumb spica splint with the IP joint free was applied. She was taken to the recovery room in stable condition. [id number]/[facility] #: [id number] TOBIAS
--- NOTE | 2019-08-11 15:49 | HP ---
HISTORY AND PHYSICAL: DATE OF ADMISSION: 07/13/19 CHIEF COMPLAINT: Left thumb base and wrist pain. HISTORY OF PRESENT ILLNESS: Ms. Miramontes comes back in. She is continuing to have left wrist pain and she has thumb base pain. We previously talked about doing surgery and she is here for preoperative H and P. PAST MEDICAL HISTORY: Hypertension, ulcerative colitis, seasonal allergies, exercise-induced asthma. PAST SURGICAL HISTORY: and cholecystectomy. FAMILY HISTORY: Negative for problems with bleeding or anesthesia. SOCIAL HISTORY: She is a former smoker. MEDICATIONS: Reviewed in the patient's chart. ALLERGIES: Reviewed and many, Noteble allergies include hydrocodone, ketorolac, oxycodone, tetracaine, and cefdinir. REVIEW OF SYSTEMS: As above. PHYSICAL EXAMINATION GENERAL: Awake and alert, in no distress. LUNGS: Clear. CARDIAC: Regular. MUSCULOSKELETAL: She has tenderness over the first dorsal compartment tendon sheath and a positive Lalitha maneuver. She has tenderness at the CMC joint , the joint line is very tender. CMC grind testing causes a lot of pain. A1 jamar is nontender. MCP joint does not show a hyperextension laxity. SKIN: Intact. No rashes or lesions. DIAGNOSTIC STUDIES/LAB DATA: X-rays of left thumb show stage 2 carpometacarpal joint arthritis. Very consistent with what she had on the right. IMPRESSION: Her left thumb carpometacarpal joint arthritis and de Quervain's disease. PLAN: We talked about treatment options, risks, and befits. She want to proceed with surgery. The plan would be for a left thumb carpometacarpal arthroplasty with a de Quervain's release. She will follow up at surgery. [id number]/[facility] #: [id number] [facility]
== END | disposition home or self-care (01) ==
LOC: OR 08:58
PROVIDERS: ATTEND Orthopaedic Surgery Hand Surgery
DX: M18.12 Unilateral primary osteoarthritis of first carpometacarpal joint, left hand (principal); M65.4 Radial styloid tenosynovitis [de Quervain]; I10 Essential (primary) hypertension; J45.909 Unspecified asthma, uncomplicated; Z72.0 Tobacco use; K58.9 Irritable bowel syndrome, unspecified
CPT/HCPCS: 81025; 88304; 88311; J1100; J2250; J2405; J2704; J3010; J3490